=== PATIENT | male | born 1965 | race Caucasian/White ===

== ENCOUNTER → 2024-05-16 | Outpatient (CLI) | payer MEDICAID, SELFPAY ==
--- NOTE | 2024-05-16 12:55 | MRI_ITS ---
EXAM: MR CERVICAL SPINE WITHOUT INTRAVENOUS CONTRAST CLINICAL INDICATION: RADICULOPATHY TECHNIQUE: Multiplanar and multisequence MR images of the cervical spine without intravenous contrast were performed. COMPARISON: No relevant prior studies available. FINDINGS: VERTEBRAE: Alignment of the right cervical vertebral bodies is normal. Normal vertebral body height. Normal craniocervical junction and cervicothoracic junction. No spondylolisthesis. There is preservation of the normal cervical lordosis. SPINAL CORD: Unremarkable in signal and morphology. SOFT TISSUES: Normal. No prevertebral soft tissue swelling. LYMPH NODES: Normal. There is no cervical adenopathy. DISCS/SPINAL CANAL/NEURAL FORAMINA: C2-C3: Normal. Normal disc height and morphology. Normal spinal canal. Normal neuroforamina. C3-C4: Normal. Normal disc height and morphology. Normal spinal canal. Normal neuroforamina. C4-C5: Normal. Normal disc height and morphology. Normal spinal canal. Normal neuroforamina. C5-C6: Moderate disc space narrowing. Left central disc protrusion results in narrowing of the left lateral recess and adjacent neural foramen. No significant spinal stenosis. Moderate narrowing of the right neural foramen related to uncinate joint hypertrophy. C6-C7: Prominent disc space narrowing. Broad-based disc osteophyte complex causes mild spinal stenosis. Prominent narrowing of the bilateral neural foramina related to uncinate joint hypertrophy. C7-T1: Left paracentral disc extrusion causing narrowing of the left lateral recess. No significant spinal or neural foraminal stenosis. MRI/Spine Cervical (Routine) IMPRESSION: 1. Disc degeneration at C5-6, C6-7 and C7-T1. 2. Prominent left C5-6 and C6-7 lateral recess stenosis secondary to disc protrusion at C5-6 and disc extrusion at C6-7. 3. Multilevel neural foraminal narrowing as described. Electronically Signed: Gildardo Ramirez MD at 16:48 EDT ,
--- NOTE | 2024-05-16 12:56 | MRI_ITS ---
EXAM: MR LUMBAR SPINE WITHOUT INTRAVENOUS CONTRAST CLINICAL INDICATION: RADICULOPATHY TECHNIQUE: Multiplanar and multisequence MR images of the lumbar spine without intravenous contrast. COMPARISON: No relevant prior studies available. FINDINGS: VERTEBRAE: Mild dextroscoliosis. Normal vertebral body height. SPINAL CORD: Normal. Normal position and signal intensity of the conus medullaris. SOFT TISSUES: Normal. DISCS/SPINAL CANAL/NEURAL FORAMINA: L1-L2: Prominent disc space narrowing mild left central disc protrusion causes narrowing of the left lateral recess and adjacent foramen. Mild impression on the thecal sac. Intact right neural foramen. No significant spinal stenosis. L2-L3: Moderate disc space narrowing. Mild disc bulging. No spinal stenosis. Mild narrowing of the neural foramina related to facet arthropathy. L3-L4: Mild disc space narrowing. Mild disc bulging, ligamentous hypertrophy and facet arthropathy results in mild compression of the thecal sac and mild to moderate bilateral neural foraminal narrowing. L4-L5: Mild disc space narrowing and vacuum disc phenomenon associated with Modic type I endplate changes. Mild broad-based disc protrusion, ligamentous hypertrophy and facet arthropathy results in mild spinal stenosis and moderate left and severe right neural foraminal narrowing. L5-S1: Prominent disc space narrowing associated with Modic type II endplate changes. Broad-based disc protrusion without spinal stenosis. Bilateral neural foraminal narrowing related to the disc protrusion and facet arthropathy. MRI/Spine Lumbar (Routine) IMPRESSION: Prominent multilevel disc degeneration and facet arthropathy without critical spinal stenosis. Prominent multilevel neural foraminal narrowing as described. Electronically Signed: Gildardo Ramirez MD at 9:01 EDT ,
== END | disposition home or self-care (01) ==
LOC: MRI 12:46
PROVIDERS: PCP Family Medicine; Referring Provider Anesthesiology; Visit Provider Anesthesiology
DX: M54.12 Radiculopathy, cervical region (principal); M54.16 Radiculopathy, lumbar region
CPT/HCPCS: 72141; 72148